=== PATIENT | female | born 1985 ===

== ENCOUNTER 2017-08-08 08:24 | Emergency (ER) | payer SELFPAY ==
[2017-08-08 08:30] VITALS: BP 120/84; PULSE 80; TEMP 97; O2SAT 99
--- NOTE | 2017-08-08 09:48 | ED PDOC ---
HPI: Eye Injury/Pain Time Seen by Provider: 08/08/17 09:05 Chief Complaint (Nursing): Eye Problem Chief Complaint (Provider): Left eye swelling History Per: Patient History/Exam Limitations: no limitations Onset/Duration Of Symptoms: Days (4) Current Symptoms Are (Timing): Still Present Wears Contact Lens?: No Associated Symptoms: Swelling, Itching, Discharge From Eye Additional History Per: Patient Additional Complaint(s): 31yo female, presents to ED with complaints of left eye swelling, redness and itching for the past 4 days. Patient states the swelling is mostly in her left upper lid and reports associated discharge from that eye as wll. She denies any contact lens use or foreign body sensation in her eye. She denies any blurry vision or vision loss. Patient has no other medical complaints. PCP: Dr. Antony Ascencio Past Medical History Reviewed: Historical Data, Nursing Documentation, Vital Signs Vital Signs: Last Vital Signs Temp 97 F L 08/08/17 08:29 Pulse 80 08/08/17 08:29 Resp BP 120/84 08/08/17 08:29 Pulse Ox 99 08/08/17 08:29 - Medical History PMH: No Chronic Diseases - Surgical History Other surgeries: tubal ligation - Family History Family History: States: No Known Family Hx - Immunization History Hx Tetanus Toxoid Vaccination: No Hx Influenza Vaccination: No Hx Pneumococcal Vaccination: No - Home Medications Home Medications: Ambulatory Orders Medication Instructions Recorded Advil 07/29/13 Ondansetron ODT [Zofran ODT] 1 odt PO BID PRN #6 odt 07/29/13 Oseltamivir [Tamiflu] 75 mg PO BID #10 cap 07/29/13 Ibuprofen [Motrin] 600 mg PO PRN PRN #14 tab 05/18/15 Tobramycin 0.3% [Tobrex 0.3% Ophth 1 drop OS Q4 #1 bottle 08/08/17 Soln] - Allergies Allergies/Adverse Reactions: Allergies Allergy/AdvReac Type Severity Reaction Status Date / Time No Known Allergies Allergy Unverified 07/29/13 16:49 Review of Systems ROS Statement: Except As Marked, All Systems Reviewed And Found Negative Eyes: Positive for: Eyelid Inflammation, Redness. Negative for: Vision Change Physical Exam - Reviewed Nursing Documentation Reviewed: Yes Vital Signs Reviewed: Yes - Physical Exam Appears: Positive for: Non-toxic, No Acute Distress Head Exam: Positive for: ATRAUMATIC, NORMAL INSPECTION, NORMOCEPHALIC Skin: Positive for: Normal Color Eye Exam: Positive for: EOMI, PERRL, Other (mild swelling and redness to mid left upper eyelid. No discharge noted.). Negative for: Periorbital swelling, Periorbital tenderness, Conjunctival injection Cardiovascular/Chest: Positive for: Regular Rate, Rhythm Respiratory: Positive for: Normal Breath Sounds Neurologic/Psych: Positive for: Alert, Oriented - ECG O2 Sat by Pulse Oximetry: 99 (RA) Pulse Ox Interpretation: Normal Medical Decision Making Medical Decision Making: Impression: Hordeolum, possible conjunctivitis Plan: -- Patient to be discharged home with Tobrex ophthalmic solution and instructed to apply warm compresses to her eye. Patient instructed to follow up with PCP in 1-2 days and if symptoms worsen or new symptoms arise, to return to ER for evaluation. Scribe Attestation: Documented by Minnie Tamayo, acting as a scribe for Luanne Thurman MD. Provider Scribe Attestation: All medical record entries made by the Scribe were at my direction and personally dictated by me. I have reviewed the chart and agree that the record accurately reflects my personal performance of the history, physical exam, medical decision making, and the department course for this patient. I have also personally directed, reviewed, and agree with the discharge instructions and disposition. Disposition - Clinical Impression Clinical Impression: Eye infection, Hordeolum externum left upper eyelid - Disposition Referrals: [facility] [Outside] Disposition: Routine/Home Disposition Time: 09:51 Condition: STABLE Additional Instructions: Take your medications as instructed. Apply warm compresses. Follow up with your PCP in 3 days. Prescriptions: Tobramycin 0.3% [Tobrex 0.3% Ophth Soln] 1 drop OS Q4 #1 bottle Instructions: Patience (Hordeolum) Print Language: GREEK
== END 2017-08-08 10:14 | disposition home or self-care (01) ==
LOC: H.ER 08:24
DX: H00.014 Hordeolum externum left upper eyelid (principal)

== ENCOUNTER 2018-01-25 11:08 | Emergency (ER) | payer SELFPAY ==
[2018-01-25 11:14] VITALS: BMI 27.1
[2018-01-25 11:16] VITALS: BP 110/73; PULSE 76; RESP 18; TEMP 97.6; O2SAT 98
[2018-01-25] MEDS ORDERED: Sodium Chloride 0.9% 1,000 ML IV STA (12:07)
--- NOTE | 2018-01-25 13:48 | ED PDOC ---
HPI: Headache Time Seen by Provider: 01/25/18 11:47 Chief Complaint (Nursing): Headache Chief Complaint (Provider): Headache History Per: Patient History/Exam Limitations: no limitations Onset/Duration Of Symptoms: Days (2) Current Symptoms Are (Timing): Still Present Associated Symptoms: Photophobia, Nausea, Vomiting. denies: Extremity Weakness Additional History Per: Patient Additional Complaint(s): 32yo female, with history of migraines, comes to ER with complaints of a headache x 2 days with associated vomiting. Patient states the headache starts with "flashing lights" and has gradually been worsening. Patient denies any sudden onset headache or a thunderclap headache and states this is not the worst headache of her life. She reports similar headache in the past with same presentation. Patient states she had an imaging study (unsure of name) and was told it was normal. She reports associated non-bilious, non-bloody vomiting, and photophobia. Patient denies any neck pain, fever, chills, weakness, numbness , diarrhea or abdominal pain. PMD: None Past Medical History Reviewed: Historical Data, Nursing Documentation, Vital Signs Vital Signs: Last Vital Signs Temp 97.6 F 01/25/18 11:15 Pulse 76 01/25/18 11:15 Resp 18 01/25/18 11:15 BP 110/73 01/25/18 11:15 Pulse Ox 98 01/25/18 11:15 - Medical History PMH: Migraine - Surgical History Other surgeries: tubal ligation - Family History Family History: States: No Known Family Hx - Immunization History Hx Tetanus Toxoid Vaccination: No Hx Influenza Vaccination: No Hx Pneumococcal Vaccination: No - Home Medications Home Medications: Ambulatory Orders Medication Instructions Recorded Advil 07/29/13 Ondansetron ODT [Zofran ODT] 1 odt PO BID PRN #6 odt 07/29/13 Oseltamivir [Tamiflu] 75 mg PO BID #10 cap 07/29/13 Ibuprofen [Motrin] 600 mg PO PRN PRN #14 tab 05/18/15 Tobramycin 0.3% [Tobrex 0.3% Ophth 1 drop OS Q4 #1 bottle 08/08/17 Soln] Acetaminophen/Butalbital/Caf 1 tab PO TID PRN #15 tab 01/25/18 [Fioricet] - Allergies Allergies/Adverse Reactions: Allergies Allergy/AdvReac Type Severity Reaction Status Date / Time No Known Allergies Allergy Unverified 01/25/18 11:37 Review of Systems ROS Statement: Except As Marked, All Systems Reviewed And Found Negative Constitutional: Negative for: Fever, Chills Eyes: Positive for: Other (photophobia) Gastrointestinal: Positive for: Vomiting. Negative for: Abdominal Pain, Diarrhea Musculoskeletal: Negative for: Neck Pain Neurological: Positive for: Headache. Negative for: Weakness, Numbness Physical Exam - Reviewed Nursing Documentation Reviewed: Yes Vital Signs Reviewed: Yes - Physical Exam Appears: Positive for: Well, Non-toxic, No Acute Distress Head Exam: Positive for: ATRAUMATIC, NORMAL INSPECTION, NORMOCEPHALIC Skin: Positive for: Normal Color, Warm, DRY Eye Exam: Positive for: EOMI, Normal appearance, PERRL ENT: Positive for: Normal ENT Inspection Neck: Positive for: Normal, Painless ROM, Supple (no neck stiffness) Cardiovascular/Chest: Positive for: Regular Rate, Rhythm, Chest Non Tender Respiratory: Positive for: CNT, Normal Breath Sounds Pulses-Radial (L): 2+ Pulses-Radial (R): 2+ Gastrointestinal/Abdominal: Positive for: Normal Exam Back: Positive for: Normal Inspection Extremity: Positive for: Normal ROM. Negative for: Pedal Edema Neurologic/Psych: Positive for: Alert, Oriented. Negative for: Motor/Sensory Deficits - ECG O2 Sat by Pulse Oximetry: 98 (RA) Pulse Ox Interpretation: Normal - Progress Re-evaluation Time: 15:40 Condition: Re-examined, Improved Medical Decision Making Medical Decision Making: Impression: Headache Differential: Recurrent migraine with aura Plan: * IV fluids * Reglan 10mg IVPB * Toradol 30mg IV * UDip Time: 1537 Patient reports feeling much better. Stable for discharge home, instructed to f/ u with PMD in 2-3 days. Scribe Attestation: Documented by Minnie Tamayo, acting as a scribe for Luanne Thurman MD. Provider Scribe Attestation: All medical record entries made by the Scribe were at my direction and personally dictated by me. I have reviewed the chart and agree that the record accurately reflects my personal performance of the history, physical exam, medical decision making, and the department course for this patient. I have also personally directed, reviewed, and agree with the discharge instructions and disposition. Disposition - Clinical Impression Clinical Impression: Headache, Migraine - Patient ED Disposition Is Patient to be Admitted: No Doctor Will See Patient In The: Office Counseled Patient/Family Regarding: Studies Performed, Diagnosis, Need For Followup - Disposition Referrals: [facility] [Outside] Disposition: Routine/Home Disposition Time: 15:35 Condition: GOOD Additional Instructions: Take your medications as instructed. Follow up with your PCP in 2-3 days. Prescriptions: Acetaminophen/Butalbital/Caf [Fioricet] 1 tab PO TID PRN #15 tab PRN Reason: Migraine Headache Instructions: Migraine Headaches in Adults Print Language: GREEK
== END 2018-01-25 15:54 | disposition home or self-care (01) ==
LOC: H.ER 11:08
DX: G43.909 Migraine, unspecified, not intractable, without status migrainosus (principal)
CPT/HCPCS: 81025; 96361; 96374; 96375; 99284; J1885; J2765; J7030